=== PATIENT | male | born 1945 | race Caucasian/White ===

== ENCOUNTER 2018-02-23 11:10 | Inpatient (IN) | payer OTHER ==
[~2018-02-23] VITALS: Ht 177.8 cm; Wt 71.7 kg
[2018-03-07] MEDS ORDERED: METHOTREXATE2.5 MG PO (15:34)
[2018-03-07] MEDS ORDERED: CELEBREX50 MG PO (15:34)
[2018-03-20] MEDS ORDERED: AMOX1TAB5 PO (13:33)
[2018-03-20] MEDS ORDERED: INTESTINEX680 M1 PO (13:33)
[2018-03-20] MEDS ORDERED: DICLOFENAC POTA50 MG PO (13:33)
== END 2018-03-20 14:11 | disposition home or self-care (01) | DRG 331 ==
LOC: EDSTATUS 03-07 12:45 → ADM 03-07 12:45 → O/R 03-15 05:47 → SURH 03-15 05:47
PROVIDERS: Surgery
PROC: 07TC4ZZ Resection of Pelvis Lymphatic, Percutaneous Endoscopic Approach (ICD-10-PCS; 2018-03-15)
PROC: 0DTF4ZZ Resection of Right Large Intestine, Percutaneous Endoscopic Approach (ICD-10-PCS; principal; 2018-03-15 05:00)
DX: D12.2 Benign neoplasm of ascending colon (principal); D50.0 Iron deficiency anemia secondary to blood loss (chronic); D37.4 Neoplasm of uncertain behavior of colon; D12.3 Benign neoplasm of transverse colon

== ENCOUNTER 2018-03-07 10:19 | Outpatient (CLI) | payer OTHER ==
[2018-03-07] MEDS ORDERED: CELEBREX50 MG PO (15:34)
[2018-03-07] MEDS ORDERED: METHOTREXATE2.5 MG PO (15:34)
== END 2018-03-07 10:24 | disposition home or self-care (01) ==
LOC: RAD 10:19
DX: D37.4 Neoplasm of uncertain behavior of colon (principal); D12.2 Benign neoplasm of ascending colon; Z01.811 Encounter for preprocedural respiratory examination

== ENCOUNTER 2018-03-13 05:43 | Day surgery (SDC) | payer OTHER ==
[~2018-03-13 05:43] MED LIST: CELEBREX50 MG PO; METHOTREXATE2.5 MG PO
== END 2018-03-13 09:35 | disposition home or self-care (01) ==
LOC: AMB-ENDOS 05:43
DX: D12.3 Benign neoplasm of transverse colon (principal); K64.8 Other hemorrhoids

== ENCOUNTER 2019-05-21 06:11 | Day surgery (SDC) | payer OTHER ==
[~2019-05-21 06:11] MED LIST changes: +AMOX1TAB5 PO; +DICLOFENAC POTA50 MG PO; +INTESTINEX680 M1 PO
== END 2019-05-21 10:05 | disposition home or self-care (01) ==
LOC: AMB-ENDOS 06:11
DX: K57.30 Diverticulosis of large intestine without perforation or abscess without bleeding (principal); K64.8 Other hemorrhoids